=== PATIENT | female | born 1985 | race Two or more races ===

== ENCOUNTER 2024-09-30 09:57 | Emergency (ER) | payer BC ==
[~2024-09-30] VITALS: Ht 160 cm; Wt 65.0 kg
[2024-09-30 09:59] VITALS: BP 121/52; PULSE 70; RESP 16; TEMP 36.7; O2SAT 99
[2024-09-30 11:01] LABS: CLARITY URINE CLEAR (CLEAR); COLOR URINE YELLOW (YELLOW); GLUCOSE URINE NEGATIVE (NEGATIVE); KETONES URINE NEGATIVE (NEGATIVE); LEUKOCYTE ESTERASE URINE NEGATIVE (NEGATIVE); NITRITE URINE NEGATIVE (NEGATIVE); OCCULT BLOOD URINE TRACE (NEGATIVE); PROTEIN URINE NEGATIVE (NEGATIVE); SPECIFIC GRAVITY URINE 1.009 (1.005-1.030); UROBILINOGEN URINE 0.2 E.U./dL (0.2-1.0)
[2024-09-30 11:48] LABS: SQUAMOUS EPITHELIAL CELL URINE 1+ /lpf (RARE/1+)
[2024-09-30 11:49] LABS: BACTERIA URINE NONE SEEN; RBC URINE 0-2 /hpf (0-2); WBC URINE 0-2 /hpf (0-2); YEAST URINE NONE SEEN
[2024-09-30] MEDS: HYDROCODONE/ACETAMINOPHEN 5/325MG TABLET PO STA (11:55)
[2024-09-30] MEDS ORDERED: MAGN296S8 MT (12:35)
[2024-09-30] MEDS ORDERED: HYDR-4001 MT (12:35)
== END 2024-09-30 12:50 | disposition home or self-care (01) ==
LOC: ER 09:57
DX: O26.892 Other specified pregnancy related conditions, second trimester (principal); K59.00 Constipation, unspecified; Z3A.17 17 weeks gestation of pregnancy
CPT/HCPCS: 76805; 81003; 99284